=== PATIENT | female | born 1945 | race Caucasian/White ===

== ENCOUNTER → 2018-03-07 | Day surgery (SDC) | payer OTHER ==
[~2018-03-07] MED LIST: CRESTOR5 MG PO; DUI500 PO; OXYC1TAB9 PO; SYNTHROID50 MCG PO
== END | disposition home or self-care (01) ==
LOC: ADM 03-03 07:15 → CIR.AMB 07:03
DX: S46.211A Strain of muscle, fascia and tendon of other parts of biceps, right arm, initial encounter (principal); S46.811A Strain of other muscles, fascia and tendons at shoulder and upper arm level, right arm, initial encounter